=== PATIENT | female | born 1985 ===

== ENCOUNTER 2024-09-30 06:08 | Outpatient (REF) | payer OTHER, SELFPAY ==
--- NOTE | ~2024-09-30 | US_ITS ---
CLINICAL HISTORY: H O Cholelithiasis US abdomen complete Comparison: None Findings: Pancreatic head and body within normal limits. Pancreatic tail not visualized due to bowel gas. The aorta and inferior vena cava are normal caliber. The liver is normal in size and echotexture. There is no intrahepatic bile duct dilatation. The common duct is 3 mm in diameter. Echogenic foci with acoustic shadowing in the gallbladder consistent with cholelithiasis. Gallbladder wall was not measured. There is no sonographic Das sign. The right kidney is 9.9 cm in length. The left kidney is 9.9 cm in length. The spleen is normal and measures 8.1 cm. No ascites. IMPRESSION: 1. Cholelithiasis. This document has been electronically signed by: Jessica Elizabeth MD on 09/30/2024 17:07:05
== END 2024-09-30 06:09 | disposition home or self-care (01) ==
LOC: HO.UMASIMG 06:08
PROVIDERS: Visit Provider Nurse Practitioner
DX: K80.80 Other cholelithiasis without obstruction (principal)
CPT/HCPCS: 76700

== ENCOUNTER → 2024-09-30 08:30 | Outpatient (BNV) | payer OTHER, SELFPAY | PROVIDERS: Visit Provider Specialist | DX: K80.20 Calculus of gallbladder without cholecystitis without obstruction (principal) | CPT/HCPCS: 76700 ==

== ENCOUNTER 2025-03-17 06:14 | Outpatient (REF) | payer OTHER, SELFPAY ==
--- NOTE | ~2025-03-17 | US_ITS ---
CLINICAL HISTORY: IRREGULAR PERIODS, H O FIBROIDS US pelvis transabdominal and transvaginal Comparison: None provided Findings: Transabdominal scanning performed for overall anatomy. Transvaginal scanning performed for additional detail. Anteverted uterus is 8.4 cm length. Endometrium 3.1 mm thickness. There is a 1.8 x 0.8 x 1.2 cm subserosal fibroid within the posterior uterine body. Right ovary 2.7 x 1.8 x 1.5 cm. Left ovary 2.6 x 2.2 x 1.1 cm. Normal color Doppler of both ovaries. No free fluid. IMPRESSION: 1. 1.8 cm subserosal fibroid. Otherwise unremarkable examination. This document has been electronically signed by: Kayla Wahl MD on 03/18/2025 12:20:38
--- OUTSIDE RECORDS SUMMARY | 2025-03-17 06:16 | XMS_ITS | Clinical Summary ---
Author Organization [facility] Address [address] [place] [address] Phone Care Team Providers Care Geodetic Surveyor Technologist Name Role Phone Pcp, Unknown Primary Care Provider Unavailabl e Social History Tobacco Use Types Packs/Day Years Used Date Smoking Tobacco: Never Assessed Education Answer Date Recorded Are you interested in more education? Not on guzman e 08/20/2024 Are you concerned about learning? Not on file 08/20/2024 No 08/20/2024 No 08/20/2024 Digital Access Answer Date Recorded No 08/20/2024 No 08/20/2024 Reliable internet access at home? Not on file 08/20/2024 Device with a working camera? Not on file Comments Unknown Sex and Gender Information Value Date Recorded Sex Assigned at Not on file Legal Sex Female 4:47 PM EST Gender Identity Not on file Sexual Orientation Not on file Plan of Treatment Upcoming Encounters Date Type Department Care Team (Late st Contact Info) Description 07/24/2025 10:30 AM EST Office Visit [address] [address] Melissa Gonzalez MD [address] [place] [address] [address] [place] [address] [email or web address] Health Maintenance Due Date Last Done Comments Adult Td,Tdap Booster 1987 DEPRESSION SCREENING 1999 SMOKING Hx and SMOKELESS TOB ACCO SCREENING 08/30/2000 HEPATITIS C SCREENING 08/30/2005 HIV ONE-TIME SCREENING (18-6 5 YEARS) 08/30/2005 PAP SMEAR 08/30/2008 INFLUENZA VACCINE (#1) 2025 COVID-19 VACCINE (2023-2 5 season) 2025 HEPATITIS A VACCINES Aged Out No long er eligible based on patient's age to complete this topic HIB VACCINES Aged Out No longer eligi ble based on patient's age to complete this topic MENINGOCOCCAL VACCINES (ACWY) Aged Out No longer eligible based on patient's age to complete this topic MENINGOCOCCAL VACCINES (B) Aged Out N o longer eligible based on patient's age to complete this topic PNEUMOCOCCAL VACCINES (0-49 years) Aged Out No longer eligible based on patient's age to complete this topic Medical Devices Not on file Insurance [employer] [employer] [facility] [employer] Care Teams Geodetic Surveyor Technologist Relationship Specialty Start Date End Date Pcp, Unknown PCP - General 08/20/24 Additional Source Comments The information contained in this document represents components of the legal health record. It is not the complete legal health record.[facility]
== END 2025-03-17 06:15 | disposition home or self-care (01) ==
LOC: HO.UMASIMG 06:14
PROVIDERS: Visit Provider Nurse Practitioner
DX: N92.6 Irregular menstruation, unspecified (principal)
CPT/HCPCS: 76830; 76856

== ENCOUNTER → 2025-03-17 14:01 | Outpatient (BNV) | payer OTHER, SELFPAY | PROVIDERS: Visit Provider Radiology Diagnostic Radiology | DX: D25.2 Subserosal leiomyoma of uterus (principal) | CPT/HCPCS: 76830; 76856 ==